=== PATIENT | female | born 1940 | race Caucasian/White ===

== ENCOUNTER 2023-08-16 15:49 | Observation (INO) ==
[2023-08-16 16:14] LABS: ABS Basophils 0.1 10^3/uL (0.0-0.1); ABS Eosinophils 0.1 10^3/uL (0.0-0.5); ABS Lymphocytes 1.8 10^3/uL (1.0-4.8); ABS Monocytes 0.5 10^3/uL (0.0-0.9); ABS Neutrophils 4.9 10^3/uL (1.5-7.6); ABS Nucleated RBC 0.01 10^3/ul; Eosinophil % 1.5 %; Hematocrit 39.2 % (35-45); Lymphocyte % 24.5 %; Mean Corpuscular Hemoglobin 28.6 pg (27-33); Mean Corpuscular Hgb Conc 33.1 g/dL (31-36); Mean Corpuscular Volume 86.4 fL (80-97); Mean Platelet Volume 7.9 fL (7.5-11.2); Nucleated Red Blood Cells % 0.1 %/100WBC (0.0-0.8); Platelet Count 215 10^3/uL (150-450); Red Blood Count 4.54 10^6/uL (3.63-4.92); Red Cell Distribution Width 14.7 % (12-17); White Blood Count 7.4 10^3/uL (3.8-11.8)
[2023-08-16 17:06] LABS: ALT 12 U/L (7-52); Albumin 3.7 g/dL (3.2-5.2); Albumin/Globulin Ratio 1.7 (1-3); Alkaline Phosphatase 90 U/L (35-149); Anion Gap 7 mmol/L (2-16); Blood Urea Nitrogen 28 mg/dL (6-24); CO2 Carbon Dioxide 26 mmol/L (22-32); Calcium 8.9 mg/dL (8.6-10.3); Chloride 106 mmol/L (101-111); Creatinine, Serum 1.02 mg/dL (0.51-0.95); Globulin 2.2 g/dL (2-4); Glucose 161 mg/dL (70-100); Sodium 139 mmol/L (135-145); Total Bilirubin 0.3 mg/dL (0.2-1.0); Total Protein 5.9 g/dL (6.4-8.9); eGFR CKD-EPI 54.6 (>60)
[2023-08-16 18:25] LABS: Urine Appearance Turbid; Urine Bacteria 1+ /HPF (Absent); Urine Bilirubin Negative (Negative); Urine Blood 1+ (Negative); Urine Color Yellow; Urine Glucose 4+ (>=1000 mg/dL) (Negative); Urine Ketones Negative (Negative); Urine Nitrite Negative (Negative); Urine Protein Trace (Negative); Urine Red Blood Cell 3+(>10/hpf) /HPF (0-Trace); Urine Squamous Epithelial Cell Present /HPF (Absent); Urine Urobilinogen Negative (Negative); Urine White Blood Cell 3+(>20/hpf) /HPF (0-Trace); Urine pH 5.5 (5.0-8.0)
[2023-08-16] MEDS ORDERED: cefTRIAXone 2 GM ADDV.VIAL 2 GM in NS 0.9% 100 ml BAG 100 ML IV ONE (18:40)
[2023-08-16 19:00] LABS: Potassium Redraw 4.5 mmol/L (3.5-5.0)
[2023-08-16] MEDS: Iodixanol (CONTRAST) 320 MG/ML 100 ML SDV IV ONE (19:05)
[2023-08-16] MEDS: cefTRIAXone 2 gm/50 mL D5W 2 GM/50 ML BAG IV ONE (19:25)
[2023-08-17] MEDS ORDERED: Dextrose 50% Syringe 50 ml 25 GM/50 ML SYRINGE IV PUSH PRN (02:02)
[2023-08-17] MEDS ORDERED: CMCS: Ketoconazole 2 % CREAM (NF) 30 GM TUBE TOPICAL PRN (09:00)
[2023-08-17 09:04] LABS: Hematocrit 40.3 % (35-45); Hemoglobin 13.4 g/dL (11.5-14.3); Mean Corpuscular Hemoglobin 28.5 pg (27-33); Mean Corpuscular Hgb Conc 33.2 g/dL (31-36); Mean Platelet Volume 7.7 fL (7.5-11.2); Platelet Count 204 10^3/uL (150-450); Red Blood Count 4.69 10^6/uL (3.63-4.92); Red Cell Distribution Width 14.6 % (12-17); White Blood Count 6.2 10^3/uL (3.8-11.8)
[2023-08-17 10:39] LABS: Calcium 8.7 mg/dL (8.6-10.3); Creatinine, Serum 1.16 mg/dL (0.51-0.95); Magnesium 2.3 mg/dL (1.9-2.7); Potassium 4.5 mmol/L (3.5-5.0); eGFR CKD-EPI 46.8 (>60)
[2023-08-17 11:10] LABS: TSH Ultra Thyroid Stim Horm 2.92 mcIU/mL (0.34-5.60)
[2023-08-17 11:16] LABS: Ferritin 13.8 ng/mL (11-307)
[2023-08-17 14:27] VITALS: BP 149/80
[2023-08-17] MEDS ORDERED: cefTRIAXone 1 gm/50 mL D5W 1 GM/50 ML BAG IV SCH (18:00)
== END 2023-08-17 18:00 | disposition home or self-care (01) ==
LOC: EDHOLD 15:49 → ED 15:49 → SSU 08-17 02:34
PROVIDERS: ADMIT Student in an Organized Health Care Education/Training Program; ATTEND Student in an Organized Health Care Education/Training Program